=== PATIENT | female | born 1970 | race Caucasian/White ===

== ENCOUNTER 2025-02-17 17:13 | Emergency (ER) | payer MEDICAID ==
[~2025-02-17] VITALS: Ht 162.6 cm; Wt 62.0 kg
[2025-02-17 17:17] VITALS: O2SAT 99
[2025-02-17] MEDS: ACETAMINOPHEN 325MG TABLET PO ONE (18:51)
[2025-02-17 20:16] LABS: BASOPHILS % 0.6 % (0.0-2.0); EOSINOPHILS % 0.3 % (0.0-5.0); HEMATOCRIT. 43.6 % (36.0-48.0); HEMOGLOBIN. 14.7 g/dL (12.0-16.0); LYMPHOCYTES % 11.4 % (20.0-50.0); MEAN PLATELET VOLUME 8.2 fl (7.4-10.4); MONOCYTES % 6.3 % (2.0-8.0); NEUTROPHILS % 81.4 % (40.0-76.0); PLATELET 228 x1000/uL (130-400); RED BLOOD CELL COUNT 4.56 mill/uL (4.2-5.4); RED CELL DISTRIBUTION WIDTH 13.8 % (11.6-14.6)
[2025-02-17 20:29] LABS: CREATININE 0.7 mg/dL (0.6-1.0)
[2025-02-17 20:30] LABS: UREA NITROGEN BLOOD 7 mg/dL (9-23)
[2025-02-17 20:31] LABS: ASPARTATE AMINOTRANSFERASE 60 IU/L (<34)
[2025-02-17 20:32] LABS: BILIRUBIN DIRECT 0.2 mg/dL (<=3.0); BILIRUBIN TOTAL 0.7 mg/dL (0.1-1.0); PROTEIN TOTAL 7.7 g/dL (6.0-8.3)
[2025-02-17] MEDS ORDERED: TOPUD MT (21:11)
[2025-02-17 21:14] VITALS: BP 115/65; PULSE 91; RESP 14; TEMP 37.1; O2SAT 97
== END 2025-02-17 21:19 | disposition home or self-care (01) ==
LOC: ER 17:13
DX: B34.9 Viral infection, unspecified (principal); R51.9 Headache, unspecified; F41.9 Anxiety disorder, unspecified; J45.909 Unspecified asthma, uncomplicated; Z88.0 Allergy status to penicillin; Z88.1 Allergy status to other antibiotic agents
CPT/HCPCS: 36415; 71045; 80048; 80076; 81025; 84443; 85025; 93005; 99285